=== PATIENT | male | born 1995 | race Caucasian/White ===

== ENCOUNTER 2024-01-15 17:15 | Emergency (ER) | payer OTHER ==
[~2024-01-15] VITALS: Ht 185.4 cm; Wt 90.7 kg
[2024-01-15 17:20] VITALS: BP 158/103
[2024-01-15 17:30] VITALS: BP 151/93
[2024-01-15 17:45] VITALS: BP 151/93
[2024-01-15 18:00] VITALS: BP 151/93
[2024-01-15 18:15] VITALS: BP 151/93
== END 2024-01-15 18:21 | disposition home or self-care (01) | DRG 563 ==
LOC: ED 17:15
DX: S46.812A Strain of other muscles, fascia and tendons at shoulder and upper arm level, left arm, initial encounter (principal); V18.0XXA Pedal cycle driver injured in noncollision transport accident in nontraffic accident, initial encounter; Y93.55 Activity, bike riding; Y92.009 Unspecified place in unspecified non-institutional (private) residence as the place of occurrence of the external cause